=== PATIENT | female | born 1950 | race Caucasian/White ===

== ENCOUNTER → 2017-11-16 | Outpatient (CLI) | payer OTHER, MEDICARE ==
[~2017-11-16] MED LIST: ALENDRONATE; BENICAR HCT 201 EACH PO; BIOTIN300 MCG PO; CITRACAL + D C1 EACH PO; FIBERCON625 M1; FISH OIL SOFTG1 EACH; HYDROCODON-ACE1 EACH PO; LUMIGAN2.5 ML OP; LYSINE1000 MG PO; MEDROLDOSEPACK PO; MULTIPLE VITAMIN; NORCO 5-325 TA1 EACH PO; RELAFEN500 MG PO; ST. JOHN'S WORT1 GM; STOOL SOFTENER1 EAC2; SUPPLIMENTS; VERAMYST10 GM; VICODIN 5-5001 EACH PO; VITAMIN D400 UNI1 PO; VITCB500GO PO; ZYRTEC10 M2 PO
== END ==
LOC: M.RAD 16:10
DX: Z12.31 Encounter for screening mammogram for malignant neoplasm of breast (principal)

== ENCOUNTER → 2018-10-07 | Outpatient (CLI) | payer MEDICARE, OTHER | LOC: M.LAB 05:06 | DX: E87.6 Hypokalemia (principal) ==

== ENCOUNTER → 2018-11-18 | Outpatient (CLI) | payer MEDICARE, OTHER | LOC: M.RAD 10:30 | DX: Z12.31 Encounter for screening mammogram for malignant neoplasm of breast (principal) ==

== ENCOUNTER → 2018-12-02 | Outpatient (CLI) | payer MEDICARE, OTHER | LOC: M.MRI 07:11 | DX: M25.412 Effusion, left shoulder (principal) ==

== ENCOUNTER → 2019-11-30 | Outpatient (CLI) | payer MEDICARE, OTHER | LOC: M.RAD 09:38 | PROVIDERS: ATTEND Family Medicine | DX: Z12.31 Encounter for screening mammogram for malignant neoplasm of breast (principal) ==